=== PATIENT | female | born 1980 | race Caucasian/White ===

== ENCOUNTER 2018-04-22 14:34 | Emergency (ER) | payer BC ==
--- NOTE | 2018-04-22 14:45 | ED Physician Documentation ---
Chest Pain - HISTORIAN Historian: patient - HPI Stated Complaint: chest pain and cough x 2 weeks Chief Complaint: Chest Pain Onset: other (total 2 weeks. she started vomiting today around noon ) Timing: sudden onset Duration: none Last known Well Date: 04/07/18 Last Known Well Time: 17:00 Last known Well Code/Unknown Code: Unknown Context: other (all the time ) Severity: mild Quality: pressure, burning Chest Pain Radiation: no radiation Chest Pain Signs/Symptoms: nausea, vomiting. denies: diaphoresis, cool extremities, dizziness, dyspnea, tachypnea, tachycardia, hypotension, palpitations Worsened By: nothing Relieved By: nothing Further Comments: yes (She states she started with a "cold" about two weeks ago. She states she has had green and yellow colored "snot" on and off. She states first two days of illness she has coughed up blood. she has pain now that started with this but increased over the morning and about noon she had the urge to vomit so hard she couldnt make it to the next room. Denies a fever. Two episodes of diarrhea this am. She has tried "a ton of cold meds") - ROS CONST: recent illness (cough- "cold" -diarrhea ) MS/LYMPH: none NEURO/PSYCH: none - PAST HX [place] risk factors: no pertinent history DVT/PE Risk Factors: none TAD/AAA risk factors: none Neuro deficit: none GI disease: none Lung disease: none Surgeries/Procedures: none Immunizations: UTD Allergies/Adverse Reactions: Allergies Allergy/AdvReac Type Severity Reaction Status Date / Time No Known Allergies Allergy Verified 04/22/18 15:25 Home Medications: Ambulatory Orders Medication Instructions Recorded NK 04/22/18 - SOCIAL HX Smoking History: cigarettes Alcohol Use: none Drug Use: none - FAMILY HX Family HX: none - REVIEWED ASSESSMENTS Nursing Assessment Reviewed: Yes Vitals Reviewed: Yes Progress - Progress Progress: 1600: resting in the room. States pain is better. No nausea DG 1715: discussed results. She is aware and agreeable to plan DG ED Results Lab/Radiology - Radiology Radiology Impressions: Examination: Portable chest History: Evaluate lungs. CP Comparison exam: None provided. Findings: Single view of the chest demonstrates a normal cardiac and mediastinal silhouette. Lung robles without focal infiltrate. No blunting of the costophrenic margins. Osseous structures are appropriate for age. Impression: No acute pulmonary process. Electronically signed on Apr 22, 2018 3:27:36 PM MARKET SALES MANAGER by: Nehemias Stevenson CT chest abdomen and pelvis with contrast History: Abdominal pain and cough. Technique: Transaxial computed tomographic images of the chest abdomen pelvis were obtained with contrast according to standard protocol. Findings: Chest: The heart size is normal. The lungs are clear. Calcified granuloma seen within the right lung. No pleural effusion or pneumothorax is identified. The osseous structures are normal. There is mild ectasia of the ascending aorta measuring 4.0 cm. Abdomen/pelvis: There is mild steatosis of the liver. The gallbladder pancreas spleen adrenals and bilateral kidneys are normal. There is increased fluid present throughout the colon and small bowel most consistent gastroenteritis. The appendix is unremarkable. The enhanced vascular structures are normal. There is no adenopathy. The bladder and uterus are normal. There is no free fluid. The osseous structures are normal. Impression: 1. Increased fluid throughout the colon and small bowel, most consistent with gastroenteritis. 2. No evidence of bowel obstruction. 3. No acute pulmonary abnormality. 4. Mild ectasia of the ascending aorta measuring 4.0 cm. Electronically signed on Apr 22, 2018 5:10:27 PM MARKET SALES MANAGER by: Grabiel Arizmendi Chest Pain Physical Exam - EXAM General Appearance: no acute distress, alert EENT: eye inspection normal, ENT inspection normal, dry mucous membranes Neck: nml inspection Respiratory: no resp. distress, chest non-tender, nml breath sounds CVS: reg. rate & rhythm, no murmur Abdomen: soft, normal bowel sounds, no distension, non-tender Skin: warm/dry, normal color Extremities: non-tender, normal range of motion, no evidence of injury, no edema Neuro: oriented X3 Discharge Clincal Impression: Gastroenteritis Referrals: Primary Doctor,No [Primary Care Provider] - 2 Days Comments: 1. Cipro 500 mg take 1 by mouth twice daily 2. Zofran 4 mg take 1 by mouth every 8 hours as needed for nausea 3. BLAND diet 4. Increase fluids 5. See PCP in 2-4 days if no improvement 6. Return to ER for any concerns Condition: Stable Disposition: 01 HOME, SELF-CARE Decision to Admit: NO Date of Decison to Admit: 04/22/18 Decision Time: 17:20
[2018-04-22] MEDS ORDERED: ASPIRIN 81 MG CHEW TAB PO ONE (14:46)
[2018-04-22] MEDS ORDERED: 0.9 % SODIUM CHLORIDE 1,000 ML IV ONE (14:47)
[2018-04-22 15:01] LABS: BASOPHILS % 0.8 (0.0-1.5); EOSINOPHILS % 1.8 % (0.0-6.8); MEAN CORPUSCULAR HEMOGLOBIN 31.6 pg (28.0-34.0); MONOCYTES % 6.7 % (0.0-11.0); NEUTROPHILS # 12.1 # k/uL (1.4-7.7)
[2018-04-22 15:23] LABS: eGFR (Non-African) > 60
[2018-04-22 15:25] VITALS: BP 125/84
[2018-04-22] MEDS ORDERED: ONDANSETRON HCL/PF 4 MG/ 2ML VIAL IVP ONE (17:16)
--- NOTE | 2018-04-22 20:42 | Diagnostic Imaging Report ---
ARCHANA SIMON [facility] [address] [facility] [address] [place], [place]. [address] Report Submission Date: Apr 22, 2018 5:10:27 PM COLOR TECHNICIAN Patient Study Name: CATIA LEUNG Date: Apr 22, 2018 4:28:51 PM COLOR TECHNICIAN Modality Type: CT\SR Gender: F Description: CT ABD PELVIS W/ CON : 78 Institution: [facility] Physician: ARCHANA SIMON CT chest abdomen and pelvis with contrast History: Abdominal pain and cough. Technique: Transaxial computed tomographic images of the chest abdomen pelvis were obtained with contrast according to standard protocol. Findings: Chest: The heart size is normal. The lungs are clear. Calcified granuloma seen within the right lung. No pleural effusion or pneumothorax is identified. The osseous structures are normal. There is mild ectasia of the ascending aorta measuring 4.0 cm. Abdomen/pelvis: There is mild steatosis of the liver. The gallbladder pancreas spleen adrenals and bilateral kidneys are normal. There is increased fluid present throughout the colon and small bowel most consistent gastroenteritis. The appendix is unremarkable. The enhanced vascular structures are normal. There is no adenopathy. The bladder and uterus are normal. There is no free fluid. The osseous structures are normal. Impression: 1. Increased fluid throughout the colon and small bowel, most consistent with gastroenteritis. 2. No evidence of bowel obstruction. 3. No acute pulmonary abnormality. 4. Mild ectasia of the ascending aorta measuring 4.0 cm. Electronically signed on Apr 22, 2018 5:10:27 PM COLOR TECHNICIAN by: Grabiel POPE
--- NOTE | 2018-04-22 20:43 | Diagnostic Imaging Report ---
ARCHANA SIMON [facility] [address] [facility] [address] [place], [place]. [address] Report Submission Date: Apr 22, 2018 5:10:27 PM STAGE SET UP WORKER Patient Study Name: CATIA LEUNG Date: Apr 22, 2018 4:28:51 PM STAGE SET UP WORKER Modality Type: CT\SR Gender: F Description: CT ABD PELVIS W/ CON : 78 Institution: [facility] Physician: ARCHANA SIMON CT chest abdomen and pelvis with contrast History: Abdominal pain and cough. Technique: Transaxial computed tomographic images of the chest abdomen pelvis were obtained with contrast according to standard protocol. Findings: Chest: The heart size is normal. The lungs are clear. Calcified granuloma seen within the right lung. No pleural effusion or pneumothorax is identified. The osseous structures are normal. There is mild ectasia of the ascending aorta measuring 4.0 cm. Abdomen/pelvis: There is mild steatosis of the liver. The gallbladder pancreas spleen adrenals and bilateral kidneys are normal. There is increased fluid present throughout the colon and small bowel most consistent gastroenteritis. The appendix is unremarkable. The enhanced vascular structures are normal. There is no adenopathy. The bladder and uterus are normal. There is no free fluid. The osseous structures are normal. Impression: 1. Increased fluid throughout the colon and small bowel, most consistent with gastroenteritis. 2. No evidence of bowel obstruction. 3. No acute pulmonary abnormality. 4. Mild ectasia of the ascending aorta measuring 4.0 cm. Electronically signed on Apr 22, 2018 5:10:27 PM STAGE SET UP WORKER by: Grabiel POPE
--- NOTE | 2018-04-22 20:46 | Diagnostic Imaging Report ---
ARCHANA SIMON [facility] [address] [facility] [place] [facility] [address] [place], [place]. [address] Report Submission Date: Apr 22, 2018 3:27:36 PM FABRIC LAY OUT WORKER Patient Study Name: CATIA LEUNG Date: Apr 22, 2018 3:09:40 PM FABRIC LAY OUT WORKER Modality Type: DX Gender: F Description: CHEST 1VIEW : 78 Institution: [facility] Physician: ARCHANA SIMON Examination: Portable chest History: Evaluate lungs. CP Comparison exam: None provided. Findings: Single view of the chest demonstrates a normal cardiac and mediastinal silhouette. Lung robles without focal infiltrate. No blunting of the costophrenic margins. Osseous structures are appropriate for age. Impression: No acute pulmonary process. Electronically signed on Apr 22, 2018 3:27:36 PM FABRIC LAY OUT WORKER by: Nehemias POPE
== END 2018-04-22 17:34 | disposition home or self-care (01) ==
LOC: ED 14:34
DX: K52.9 Noninfective gastroenteritis and colitis, unspecified (principal)
CPT/HCPCS: 36415; 71045; 71260; 74177; 80053; 84484; 85025; 87400; 93005; 96374; 99284; 99285; J2405; J7030; Q9967; S1016